=== PATIENT | male | born 1970 | race Caucasian/White ===

== ENCOUNTER 2016-08-15 11:25 | Emergency (ER) | payer MEDICAID, OTHER ==
--- NOTE | 2016-08-15 11:59 | C.PDOC ---
History Of Present Illness 46 yo male come in for evaluation of diffuse Right sided back pain gradually developed for past 3 weeks. Pain is localized, reproducible, aching, worse with movement. Pt admits, " work as house keeper, moves a lot". Otherwise, pt denies fever, chills, known trauma or injury, abd. pain, N/V, UTI sx, saddle anesthesia , urinary or fecal incontinence, denies weakness to B/L lEs. Ambulate to ED for evaluation, not in any apparent distress. Time Seen by Provider: 08/15/16 11:33 Chief Complaint (Nursing): Back Pain History Per: Patient History/Exam Limitations: no limitations Onset/Duration Of Symptoms: Days (2 weeks) Current Symptoms Are (Timing): Still Present Quality Of Discomfort: Aching Past Medical History Reviewed: Historical Data, Nursing Documentation, Vital Signs Vital Signs: Last Vital Signs Temp 97.6 F 08/15/16 11:32 Pulse 68 08/15/16 11:32 Resp 16 08/15/16 11:32 BP 139/83 08/15/16 11:32 Pulse Ox 98 08/15/16 12:22 - Medical History PMH: Asthma Family History: States: No Known Family Hx - Social History Hx Tobacco Use: No Hx Alcohol Use: No Hx Substance Use: No - Immunization History Hx Tetanus Toxoid Vaccination: No Hx Influenza Vaccination: No Hx Pneumococcal Vaccination: No Review Of Systems Except As Marked, All Systems Reviewed And Found Negative. Constitutional: Negative for: Fever, Chills Gastrointestinal: Negative for: Nausea, Vomiting, Abdominal Pain Genitourinary: Positive for: Other (No saddle anesthesia ). Negative for: Dysuria, Incontinence Musculoskeletal: Positive for: Back Pain (Right sided back pain) Physical Exam - Physical Exam Appears: Well, Non-toxic, No Acute Distress Skin: Normal Color, Warm, Dry, No Rash, No Ecchymosis Eye(s): bilateral: Normal Inspection Nose: Normal Throat: Normal, No Erythema Neck: Normal, Normal ROM, No Midline Cervical Tenderness, No Paracervical Tenderness, No Step Off Deformity, Supple Cardiovascular: Rhythm Regular Respiratory: Normal Breath Sounds Gastrointestinal/Abdominal: Normal Exam, Soft, No Tenderness, No Distention, No Guarding Back: Normal Inspection (mild discomfort to bending over L-spine due to pain.), No CVA Tenderness, No Vertebral Tenderness, Paraspinal Tenderness (diffuse Right lumbar), Straight Leg Raising (Right leg (+) at 50 degrees, Left leg (+) at 80 degrees.) Extremity: Normal ROM, No Pedal Edema, No Deformity, No Swelling Extremity: Bilateral: Atraumatic Neurological/Psych: Oriented x3, Normal Speech, Normal Motor, Normal Sensation, Normal Reflexes ED Course And Treatment O2 Sat by Pulse Oximetry: 98 Pulse Ox Interpretation: Normal - Other Rad X-Ray - LS Spine X-Ray: Interpreted by Me, Viewed By Me Interpretation: no acute fx or sublux Progress Note: On re-evaluation, pt is afebrile, hemodynamicaly stable. Tolerate Po well in ED. Ambulatory in ED, not in any apparent distress. PulseOx 97% RA. ENT: (-) acute findings. neck: (-) meningeal sign,. Abd: benign, (-) guarding, (-) rebound, (-) localized tenderness. Back: (-) CVA tenderness. Neuorlogicaly intact. XRay review and appears normal. Pt has clinical findings c/w back strain. Parent advised on course of ds. ref. to F/ u with PMD in 2-3 days for re-eval. return if any new changes. Medical Decision Making Medical Decision Making: PLAN: * X-Ray - LS Spine * Tramadol PO Disposition Counseled Patient/Family Regarding: Studies Performed, Diagnosis, Need For Followup, Rx Given - Disposition Referrals: [facility] [Outside] Disposition: HOME/ ROUTINE Disposition Time: 12:28 Condition: STABLE Additional Instructions: LIght duty to lower back, avoid heavy lifting, bending for 2-3 weeks Take medication as prescribed Follow up with PMD In 2-3 days for re-evaluation. Return to ED if any worsening or new changes. Prescriptions: Ibuprofen [Motrin] 600 mg PO Q6 #20 tab Methocarbamol [Robaxin] 500 mg PO TID #14 tab traMADol [Ultram] 50 mg PO TID #7 tab Instructions: Back Pain (ED) Forms: Work Excuse Print Language: UZBEK - Clinical Impression Clinical Impression: Low back strain - PA / OPTICIAN MANAGER / Resident Statement MD/DO has reviewed & agrees with the documentation as recorded. - Scribe Statement The provider has reviewed the documentation as recorded by the Scribe Ivett Renee All medical record entries made by the Scribe were at my direction and personally dictated by me. I have reviewed the chart and agree that the record accurately reflects my personal performance of the history, physical exam, medical decision making, and the department course for this patient. I have also personally directed, reviewed, and agree with the discharge instructions and disposition.
[2016-08-15 12:45] VITALS: BP 111/78; PULSE 73; RESP 18; TEMP 98.4; O2SAT 97
--- NOTE | 2016-08-15 13:55 | RAD ---
PROCEDURE: Radiographs of the Lumbar Spine. HISTORY: injury COMPARISON: No prior. FINDINGS: BONES: Normal alignment. No listhesis. No fracture. DISC SPACES: Unremarkable. OTHER FINDINGS: Constipation without fecal impaction or obstruction. IMPRESSION: No acute findings related to/accounting for the clinical presentation. Concordant results with the preliminary interpretation rendered by the emergency department physician procedure.
== END 2016-08-15 12:45 | disposition home or self-care (01) ==
LOC: C.ER 11:25
DX: S39.012A Strain of muscle, fascia and tendon of lower back, initial encounter (principal); X50.9XXA Other and unspecified overexertion or strenuous movements or postures, initial encounter; Y93.89 Activity, other specified; Y92.9 Unspecified place or not applicable

== ENCOUNTER 2017-02-27 04:29 | Emergency (ER) | payer SELFPAY ==
--- NOTE | 2017-02-27 05:18 | C.PDOC ---
History Of Present Illness 47 y/o male c/o acute onset of left foot pain that suddenly occurred when walking to the bathroom. Patient has no hx of gout. Denies trauma, weakness, or numbness. Time Seen by Provider: 02/27/17 04:49 Chief Complaint (Nursing): Lower Extremity Problem/Injury History Per: Patient History/Exam Limitations: no limitations Onset/Duration Of Symptoms: Hrs Current Symptoms Are (Timing): Still Present Severity: Mild Recent travel outside of the [place] States: No Additional History Per: Patient Past Medical History Reviewed: Historical Data, Nursing Documentation, Vital Signs Vital Signs: Last Vital Signs Temp 98 F 02/27/17 05:33 Pulse 67 02/27/17 05:33 Resp 16 02/27/17 05:33 BP 142/90 02/27/17 05:33 Pulse Ox 98 02/27/17 05:59 - Medical History PMH: Asthma (at childhood age) Family History: States: Unknown Family Hx - Social History Hx Tobacco Use: No Hx Alcohol Use: No Hx Substance Use: No - Immunization History Hx Tetanus Toxoid Vaccination: No Hx Influenza Vaccination: No Hx Pneumococcal Vaccination: No Review Of Systems Constitutional: Negative for: Other (Trauma) Musculoskeletal: Positive for: Foot Pain (Left) Neurological: Negative for: Weakness, Numbness Physical Exam - Physical Exam Appears: Non-toxic, No Acute Distress Skin: Warm, Dry Head: Atraumatic, Normacephalic Extremity: Normal ROM, No Tenderness, No Pedal Edema (no foot or leg edema), Capillary Refill, No Deformity, No Swelling (no swelling or pain podagra), Other (increase pain of the dorsum with dorsiflexion) Pulses: Left Dorsalis Pedis: Normal, Right Dorsalis Pedis: Normal Neurological/Psych: Oriented x3, Normal Motor, Normal Sensation Gait: Steady ED Course And Treatment O2 Sat by Pulse Oximetry: 98 (RA) Pulse Ox Interpretation: Normal Medical Decision Making Medical Decision Making: dorsum L foot pain, no fx/disloc/trauma. normal films no hx nor s/s of gout neg podagra improved with Motrin/ice. opt f/u. Disposition Doctor Will See Patient In The: Office Counseled Patient/Family Regarding: Studies Performed, Diagnosis - Disposition Referrals: [facility] [Outside] [facility] [Outside] Disposition: HOME/ ROUTINE Disposition Time: 05:18 Condition: GOOD Additional Instructions: sigue hielo encima del pie sigue ibuprofeno/Advil 400-600 mg cada 6 horas tuan necessario Sigue en [facility] [place]- tuan necessario. Instructions: Arthralgia (ED) Forms: [facility] (Sammarinese), Work Excuse Print Language: MALTESE - Clinical Impression Clinical Impression: Foot pain, left - Scribe Statement The provider has reviewed the documentation as recorded by the Scribe Fan wilder All medical record entries made by the Donnellibe were at my direction and personally dictated by me. I have reviewed the chart and agree that the record accurately reflects my personal performance of the history, physical exam, medical decision making, and the department course for this patient. I have also personally directed, reviewed, and agree with the discharge instructions and disposition.
[2017-02-27 05:32] VITALS: BP 142/90; PULSE 67; RESP 16; TEMP 98
[2017-02-27 05:57] VITALS: O2SAT 98
--- NOTE | 2017-02-27 08:54 | RAD ---
PROCEDURE: Left Foot Radiographs. HISTORY: dorsum of L foot, no trauma, no gout COMPARISON: None. FINDINGS: BONES: Normal. No fracture. JOINTS: Normal. SOFT TISSUES: Normal. OTHER FINDINGS: None. IMPRESSION: Normal left foot radiographs.
== END 2017-02-27 05:32 | disposition home or self-care (01) ==
LOC: C.ER 04:29
DX: M79.672 Pain in left foot (principal)

== ENCOUNTER 2017-06-09 07:50 | Emergency (ER) | payer OTHER ==
[2017-06-09 08:11] VITALS: RESP 18; O2SAT 98
[2017-06-09] MEDS ORDERED: Albuterol 0.083% Inhal Sol (2.5 mg/3 mL) UD INH STA (08:46)
--- NOTE | 2017-06-09 08:46 | C.PDOC ---
History Of Present Illness 47-year-old male, presents to the emergency department with complaints of non- productive cough and wheezing x4 days, that worsens at night. Patient states "I only get this way when I am sick." Patient ran out of Albuterol nebulizer at home. He denies smoking, fever or any other associated symptoms. No other complaints at this time. COUGH, WHEEZE X 4 DAYS. PS "I ONLY GET THIS WAY WHEN IM SICK". RAN OUT OF ALBUTEROL NEB @ HOME. NO SMOKE, FEVER. 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 EXAM NARD LUNGS CTA B/L OCC EXP WHEEZE NO RETRACTION SPEAKING FULL SENTENCES REMAINDER NEG Time Seen by Provider: 06/09/17 08:18 Chief Complaint (Nursing): Cough, Cold, Congestion History Per: Patient History/Exam Limitations: no limitations Onset/Duration Of Symptoms: Days Current Symptoms Are (Timing): Still Present Past Medical History Reviewed: Historical Data, Nursing Documentation, Vital Signs Vital Signs: Last Vital Signs Temp 98 F 06/09/17 08:06 Pulse 68 06/09/17 08:06 Resp 18 06/09/17 08:06 BP 151/91 H 06/09/17 08:06 Pulse Ox 98 06/09/17 09:11 - Medical History PMH: Asthma (at childhood age) Family History: States: No Known Family Hx - Social History Hx Tobacco Use: No Hx Alcohol Use: No Hx Substance Use: No - Immunization History Hx Tetanus Toxoid Vaccination: No Hx Influenza Vaccination: No Hx Pneumococcal Vaccination: No Review Of Systems Except As Marked, All Systems Reviewed And Found Negative. Constitutional: Negative for: Fever, Chills Cardiovascular: Negative for: Chest Pain, Palpitations Respiratory: Positive for: Cough, Wheezing. Negative for: Sputum Gastrointestinal: Negative for: Nausea, Vomiting Musculoskeletal: Negative for: Back Pain Neurological: Negative for: Headache Physical Exam - Physical Exam Appears: Non-toxic, No Acute Distress (NARD) Skin: Warm, Dry, No Rash Head: Atraumatic, Normacephalic Eye(s): bilateral: Normal Inspection, PERRL Nose: Normal Oral Mucosa: Moist Lips: Normal Appearing Neck: Normal ROM Chest: Symmetrical Cardiovascular: Rhythm Regular, No Murmur Respiratory: No Accessory Muscle Use, Wheezing, Other (CTA B/L OCC EXP WHEEZE NO RETRACTION SPEAKING FULL SENTENCES) Extremity: Normal ROM Neurological/Psych: Oriented x3, Normal Speech ED Course And Treatment ECG: Interpreted By Me ECG Rhythm: Sinus Rhythm ECG Interpretation: Normal Rate From EC O2 Sat by Pulse Oximetry: 98 Pulse Ox Interpretation: Normal - Radiology CXR: Interpreted by Me CXR Interpretation: Yes: No Acute Disease Medical Decision Making Medical Decision Making: Plan: * Chest X-Ray * Duoneb * Tessalon * Peak Flow * Reassess and Disposition Disposition Counseled Patient/Family Regarding: Studies Performed, Diagnosis, Need For Followup, Rx Given - Disposition Referrals: [facility] [Outside] [facility] [Outside] Disposition: HOME/ ROUTINE Disposition Time: 08:47 Condition: IMPROVED Prescriptions: Albuterol 0.083% [Albuterol Sulfate 3 Ml] 3 ml IH Q4 #30 neb Albuterol HFA [Ventolin HFA 90 mcg/actuation (8 g)] 1 puff IH Q4 #1 inhaler Benzonatate [Tessalon Perles] 200 mg PO TID PRN #15 sgl PRN Reason: Cough Instructions: Acute Bronchitis (ED) Forms: [employer] [facility] (Latvian), Work Excuse - Clinical Impression Clinical Impression: Bronchitis, Bronchospasm, Medicine refill - Scribe Statement The provider has reviewed the documentation as recorded by the Scribe (Anders Tian) All medical record entries made by the Scribe were at my direction and personally dictated by me. I have reviewed the chart and agree that the record accurately reflects my personal performance of the history, physical exam, medical decision making, and the department course for this patient. I have also personally directed, reviewed, and agree with the discharge instructions and disposition.
--- NOTE | 2017-06-09 08:52 | RAD ---
HISTORY: cough COMPARISON: Chest x-ray performed 09/09/14 TECHNIQUE: Chest PA and lateral FINDINGS: Examination limited by habitus. LUNGS: No focal consolidation. Please note that chest x-ray has limited sensitivity for the detection of pulmonary masses. PLEURA: No significant pleural effusion identified. No definite pneumothorax . CARDIOVASCULAR: The cardiomediastinal silhouette appears within normal limits of size. OSSEOUS STRUCTURES: No acute osseous abnormality identified. VISUALIZED UPPER ABDOMEN: Unremarkable. OTHER FINDINGS: None. IMPRESSION: No focal consolidation, significant pleural effusion, or definite pneumothorax identified.
[2017-06-09] MEDS ORDERED: Albuterol 0.083% Inhal Sol (2.5 mg/3 mL) UD ONE (09:00)
[2017-06-09 09:46] VITALS: BP 149/86; PULSE 65; TEMP 97.7
--- NOTE | 2017-06-10 23:44 | CARD ---
APPROVED REPORT EKG Measurement Heart [id number] <Conclusion> Normal sinus rhythm Normal ECG
== END 2017-06-09 09:35 | disposition home or self-care (01) ==
LOC: C.ER 07:50
DX: J40 Bronchitis, not specified as acute or chronic (principal); J98.01 Acute bronchospasm; Z76.0 Encounter for issue of repeat prescription

== ENCOUNTER 2017-10-24 07:30 | Emergency (ER) | payer SELFPAY ==
[2017-10-24 07:35] VITALS: TEMP 97.9
[2017-10-24] MEDS ORDERED: Lidocaine 5% Patch TD STA (07:56)
--- NOTE | 2017-10-24 07:56 | C.PDOC ---
History Of Present Illness <Carleen North - Last Filed: 10/24/17 09:53> <Johnie Gimenez - Last Filed: 10/24/17 20:44> 47 years old male presents to ED for complaints of lower back pain that began 2 days ago. Patient describes pain as dull and aching. Patient also reports pain worsens with movement and is non radiating. Denies injury, numbness, weakness, or any other physical complaints. Patient reports taking Tylenol with minimal relief. (Carleen North) History Per: Patient History/Exam Limitations: no limitations Onset/Duration Of Symptoms: Days (2) Current Symptoms Are (Timing): Still Present Quality Of Discomfort: Dull, Aching Previous Symptoms: None Associated Symptoms: None Exacerbating Factor(s): Movement Recent travel outside of the [place]: No <Carleen North - Last Filed: 10/24/17 09:53> <Johnie Gimenez - Last Filed: 10/24/17 20:44> Time Seen by Provider: 10/24/17 07:42 Chief Complaint (Nursing): Back Pain Past Medical History Reviewed: Historical Data, Nursing Documentation, Vital Signs - Medical History PMH: Asthma (at childhood age) Surgical History: No Surg Hx Family History: States: Unknown Family Hx - Social History Hx Tobacco Use: No Hx Alcohol Use: No Hx Substance Use: No - Immunization History Hx Tetanus Toxoid Vaccination: No Hx Influenza Vaccination: No Hx Pneumococcal Vaccination: No <Carleen North - Last Filed: 10/24/17 09:53> Vital Signs: Last Vital Signs Temp 97.9 F 10/24/17 07:34 Pulse 68 10/24/17 09:18 Resp 18 10/24/17 09:18 BP 131/76 10/24/17 09:18 Pulse Ox 99 10/24/17 09:55 Review Of Systems Constitutional: Negative for: Fever, Chills Gastrointestinal: Negative for: Nausea, Vomiting, Abdominal Pain, Diarrhea Genitourinary: Negative for: Dysuria, Scrotal Pain Musculoskeletal: Positive for: Back Pain (Lower back) Skin: Negative for: Rash Neurological: Negative for: Weakness, Numbness <Carleen North - Last Filed: 10/24/17 09:53> Physical Exam - Physical Exam Appears: Non-toxic, No Acute Distress Skin: Warm, Dry, No Rash, No Ecchymosis Head: Atraumatic, Normacephalic Eye(s): bilateral: Normal Inspection, EOMI Oral Mucosa: Moist Neck: Normal ROM, Supple Chest: Symmetrical, No Tenderness Cardiovascular: Rhythm Regular, No Murmur Respiratory: No Decreased Breath Sounds, No Rales, No Rhonchi, No Wheezing Gastrointestinal/Abdominal: Soft, No Tenderness, No Guarding Back: No Vertebral Tenderness, No Straight Leg Raising, Other (Paralumbar tenderness; No rash, swelling, or ecchymosis) Extremity: Bilateral: Atraumatic, Normal Color And Temperature, Normal ROM Neurological/Psych: Oriented x3, Normal Speech Gait: Steady <Carleen North Last Filed: 10/24/17 09:53> ED Course And Treatment O2 Sat by Pulse Oximetry: 99 (RA) Pulse Ox Interpretation: Normal <Carleen North Last Filed: 10/24/17 09:53> Medical Decision Making <Carleen North Last Filed: 10/24/17 09:53> <Johnie Gimenez Last Filed: 10/24/17 20:44> Medical Decision Making: Impression: Low back pain Based on history and exam no clinical indication for xray Plan: * Toradol * Flexeril * Lidoderm patch Progress: On reassessment, patient is resting comfortably, with improvement of back pain. Patient remains afebrile, with no bony tenderness, extremity numbness or weakness, or abdominal pain. Patient is ambulatory in the emergency department with no signs of discomfort. Patient was advised to follow up with physician/ clinic in 1-2 days. (Carleen North) Disposition Counseled Patient/Family Regarding: Diagnosis, Need For Followup, Rx Given - Disposition Disposition Time: 09:15 - POA Present On Arrival: None <Carleen North - Last Filed: 10/24/17 09:53> <Johnie Gimenez Last Filed: 10/24/17 20:44> - Disposition Referrals: [facility] [Outside] [facility] [Outside] Disposition: HOME/ ROUTINE Condition: IMPROVED Additional Instructions: Apply heat to area for 15-20 minutes at a time 2-3 times per day Take Motrin for pain every 6-8 hours as needed, with food to not upset stomach Take Flexeril for muscle pain and spasm every 6-8 hours as needed, caution can cause drowsiness Follow up with your primary medical doctor or clinic in 2-5 days for further evaluation Return to the emergency department at any time if symptoms persist or worsen. Prescriptions: Cyclobenzaprine [Cyclobenzaprine HCl] 10 mg PO TID #30 tab Ibuprofen [Motrin] 600 mg PO Q8 #30 tab Instructions: Low Back Pain (DC) Forms: [employer] (Citizen Of [place]), Work Excuse - Clinical Impression Clinical Impression: Low back pain - PA / COIL FINISHER / Resident Statement MD/ has reviewed & agrees with the documentation as recorded. - Scribe Statement The provider has reviewed the documentation as recorded by the Scribe <Carleen North - Last Filed: 10/24/17 09:53> - PA / COIL FINISHER / Resident Statement / has reviewed & agrees with the documentation as recorded. <Johnie Gimenez - Last Filed: 10/24/17 20:44> - Scribe Statement Alejandro Brady All medical record entries made by the Scribe were at my direction and personally dictated by me. I have reviewed the chart and agree that the record accurately reflects my personal performance of the history, physical exam, medical decision making, and the department course for this patient. I have also personally directed, reviewed, and agree with the discharge instructions and disposition. (Carleen North)
[2017-10-24] MEDS ORDERED: Lidocaine 5% Patch TD ONE (08:21)
[2017-10-24 09:19] VITALS: BP 131/76; PULSE 68; RESP 18
[2017-10-24 09:56] VITALS: O2SAT 99
== END 2017-10-24 09:19 | disposition home or self-care (01) ==
LOC: C.ER 07:30
DX: M54.5 Low back pain (principal)
CPT/HCPCS: 96372; 99283; J1885

== ENCOUNTER 2018-07-02 17:27 | Emergency (ER) | payer OTHER ==
[2018-07-02 17:34] VITALS: BMI 26.5
[2018-07-02] MEDS ORDERED: Albuterol-Ipratrop 3 mg / 0.5 (3 ml) UD ONE ×2 (17:45→18:06)
[2018-07-02] MEDS ORDERED: Albuterol-Ipratrop 3 mg / 0.5 (3 ml) UD INH STA (18:00)
--- NOTE | 2018-07-02 18:01 | C.PDOC ---
Time Seen by Provider: 07/02/18 17:54 Chief Complaint (Nursing): Cough, Cold, Congestion Past Medical History Vital Signs: Last Vital Signs Temp 99.7 F H 07/02/18 17:34 Pulse 97 H 07/02/18 17:34 Resp 24 07/02/18 17:34 BP 143/98 H 07/02/18 17:34 Pulse Ox 93 L 07/02/18 17:34 - Medical History PMH: Asthma (at childhood age) Family History: States: Unknown Family Hx - Social History Hx Tobacco Use: No Hx Alcohol Use: No Hx Substance Use: No - Immunization History Hx Tetanus Toxoid Vaccination: No Hx Influenza Vaccination: No Hx Pneumococcal Vaccination: No ED Course And Treatment ECG: Interpreted By Me ECG Rhythm: Sinus Rhythm ECG Interpretation: Normal Rate From EC O2 Sat by Pulse Oximetry: 93 Pulse Ox Interpretation: Abnormal Medical Decision Making Medical Decision Making: mild asthma exacerbation ran out of nebs meds @ home improved in ED Disposition Doctor Will See Patient In The: Office Counseled Patient/Family Regarding: Studies Performed, Diagnosis - Disposition Disposition: HOME/ ROUTINE Disposition Time: 18:01 Condition: GOOD Forms: [facility] (New Zealander) - Clinical Impression Clinical Impression: Asthma
[2018-07-02 18:32] VITALS: BP 135/97; PULSE 95; RESP 18; TEMP 99; O2SAT 95
--- NOTE | 2018-07-07 12:13 | CARD ---
APPROVED REPORT Date of service: 07/02/2018 EKG Measurement Heart [id number] <Conclusion> Normal sinus rhythm Normal ECG
== END 2018-07-02 18:31 | disposition home or self-care (01) ==
LOC: C.ER 17:27
DX: J45.909 Unspecified asthma, uncomplicated (principal)

== ENCOUNTER 2018-07-07 08:42 | Inpatient (IN) | payer SELFPAY ==
[2018-07-07 08:42] VITALS: BMI 26.5
[2018-07-07] MEDS ORDERED: Albuterol-Ipratrop 3 mg / 0.5 (3 ml) UD INH STA ×2 (08:55→10:31)
[2018-07-07] MEDS ORDERED: Sodium Chloride 0.9% 1,000 ML IV ONE (08:56)
[2018-07-07] MEDS ORDERED: Sodium Chloride 0.9% 1,000 ML ONE (09:08)
[2018-07-07] MEDS ORDERED: Albuterol-Ipratrop 3 mg / 0.5 (3 ml) UD ONE ×2 (09:12→10:43)
[2018-07-07 09:28] LABS: BASO # 0.1 K/uL (0.0-0.2); BASO % 0.6 % (0.0-2.0); EOS # 0.1 K/uL (0.0-0.7); EOS % 1.4 % (0.0-4.0); HEMOGLOBIN 13.7 g/dL (12.0-18.0); LYMPH # 0.9 K/uL (1.0-4.3); LYMPH % 9.7 % (20.0-40.0); MEAN CELL VOLUME 87.4 fL (80.0-94.0); MEAN CORPUSCULAR HEMOGLOBIN 28.5 pg (27.0-31.0); MEAN CORPUSCULAR HGB CONC 32.6 g/dL (33.0-37.0); MEAN PLATELET VOLUME 10.7 fL (7.2-11.7); MONO # 0.6 K/uL (0.0-0.8); MONO % 6.7 % (0.0-10.0); NEUT # 7.3 K/uL (1.8-7.0); NEUT % 81.6 % (50.0-75.0); PLATELET COUNT 186 K/uL (130-400); RBC 4.79 Mil/uL (4.40-5.90); RED CELL DISTRIBUTION WIDTH 12.8 % (11.5-14.5)
[2018-07-07 09:47] LABS: ALB/GLOB RATIO 1.2 (1.0-2.1); ALBUMIN 4.3 g/dL (3.5-5.0); ALT/SGPT 96 U/L (21-72); AST/SGOT 70 U/L (17-59); BLOOD UREA NITROGEN 13 mg/dL (9-20); CALCIUM 8.9 mg/dl (8.6-10.4); GFR NON-AFRICAN AMERICAN > 60
[2018-07-07 10:23] LABS: BANDS 4 % (0-2); LYMPHOCYTE 10 % (20-40); MONOCYTE 7 % (0-10); NEUTROPHIL 79 % (50-75); PLATELET ESTIMATE NORMAL (NORMAL); TOTAL CELLS COUNTED 100
--- NOTE | 2018-07-07 10:25 | RAD ---
Date of service: 07/07/2018 HISTORY: SOB COMPARISON: Comparison is made with 06/09/2017 TECHNIQUE: Chest PA and lateral FINDINGS: LUNGS: Small bibasilar opacities likely represent atelectasis are noted. Otherwise no significant interval change in the lungs. PLEURA: No significant pleural effusion identified. No pneumothorax apparent. CARDIOVASCULAR: No aortic atherosclerotic calcification present. Normal cardiac size. No pulmonary vascular congestion. OSSEOUS STRUCTURES: No significant abnormalities. VISUALIZED UPPER ABDOMEN: Normal. OTHER FINDINGS: None. IMPRESSION: Small bibasilar opacities. Otherwise no evidence of new infiltrate or consolidation in the lungs.
[2018-07-07] MEDS ORDERED: (Novolin R) Insulin Human Regular 100 units/ml vial IV ONE (10:30)
[2018-07-07] MEDS ORDERED: (Novolin R) Insulin Human Regular 100 units/ml vial ONE (10:44)
--- NOTE | 2018-07-07 10:57 | C.PDOC ---
History Of Present Illness 48 year old male with a history of asthma presents to the ED for evaluation of ongoing shortness of breath, productive cough with green phlegm, body aches, and tactile fever for 4 days. The patient reports prior ED visit 5 days ago where he was treated for exacerbated asthma. Systems persisted which prompted ED visit. Denies nausea, vomiting, diarrhea, and any other associated symptoms. Time Seen by Provider: 07/07/18 08:50 Chief Complaint (Nursing): Shortness Of Breath History Per: Patient History/Exam Limitations: no limitations Onset/Duration Of Symptoms: Days (x4) Current Symptoms Are (Timing): Still Present Recent travel outside of the [place]: No Past Medical History Reviewed: Historical Data, Nursing Documentation, Vital Signs Vital Signs: Last Vital Signs Temp 98.7 F 07/07/18 08:53 Pulse 118 H 07/07/18 10:38 Resp 101 H 07/07/18 10:38 BP 118/74 07/07/18 10:38 Pulse Ox 91 L 07/07/18 10:38 - Medical History PMH: Asthma (at childhood age) Family History: States: Unknown Family Hx - Social History Hx Tobacco Use: No Hx Alcohol Use: No Hx Substance Use: No - Immunization History Hx Tetanus Toxoid Vaccination: No Hx Influenza Vaccination: No Hx Pneumococcal Vaccination: No Review Of Systems Except As Marked, All Systems Reviewed And Found Negative. Constitutional: Positive for: Fever (tactile. ), Other (body aches. ) Respiratory: Positive for: Cough (productive. ), Shortness of Breath Physical Exam - Physical Exam Appears: Non-toxic, No Acute Distress Skin: Normal Color, Warm, Dry Head: Atraumatic, Normacephalic Eye(s): bilateral: Normal Inspection, PERRL, EOMI Nose: Normal Oral Mucosa: Moist Neck: Decreased ROM Chest: Symmetrical, No Deformity Cardiovascular: Rhythm Regular, No Murmur Respiratory: Wheezing (expiratory.) Gastrointestinal/Abdominal: Normal Exam, Soft, No Tenderness Extremity: Bilateral: Atraumatic, Normal Color And Temperature, Normal ROM Neurological/Psych: Oriented x3, Normal Speech ED Course And Treatment - Laboratory Results Result Diagrams: 07/07/18 09:18 07/07/18 09:18 Lab Results: Troponin I < 0.0120 ng/mL (0.00-0.120) 07/07/18 09:18 Total Bilirubin 0.7 mg/dL (0.2-1.3) 07/07/18 09:18 AST 70 U/L (17-59) H 07/07/18 09:18 ALT 96 U/L (21-72) H D 07/07/18 09:18 Alkaline Phosphatase 115 U/L (38-126) 07/07/18 09:18 Total Protein 7.7 g/dL (6.3-8.3) 07/07/18 09:18 Albumin 4.3 g/dL (3.5-5.0) 07/07/18 09:18 Globulin 3.4 gm/dL (2.2-3.9) 07/07/18 09:18 Albumin/Globulin Ratio 1.2 (1.0-2.1) 07/07/18 09:18 ECG: Interpreted By Me, Viewed By Me ECG Rhythm: Sinus Rhythm Interpretation Of ECG: No intervals. Normal axis. No ST or T Wave abnormalities. Rate From EC O2 Sat by Pulse Oximetry: 91 Pulse Ox Interpretation: Abnormal - Other Rad CXR X-Ray: Viewed By Me, Read By Radiologist Interpretation: FINDINGS: LUNGS: Small bibasilar opacities likely represent atelectasis are noted. Otherwise no significant interval change in the lungs. PLEURA: No significant pleural effusion identified. No pneumothorax apparent. CARDIOVASCULAR: No aortic atherosclerotic calcification present. Normal cardiac size. No pulmonary vascular congestion. OSSEOUS STRUCTURES: No significant abnormalities. VISUALIZED UPPER ABDOMEN: Normal. OTHER FINDINGS: None. IMPRESSION: Small bibasilar opacities. Otherwise no evidence of new infiltrate or consolidation in the lungs. Medical Decision Making Medical Decision Making: Initial plan: -EKG -Blood sent. -CXR -Duoneb -SOlu-Medrol -Toradol -Zithromax Progress/Update: 10:55am : Spoke with the hospitalist corporate communications manager, Dr. Khadar Evans who agreed to admit for pneumonia and hyperglycemia. Disposition Discussed With : Khadar Evans Doctor Will See Patient In The: Hospital Counseled Patient/Family Regarding: Studies Performed, Diagnosis - Disposition Disposition: HOSPITALIZED Disposition Time: 10:57 Condition: FAIR - Clinical Impression Clinical Impression: Pneumonia, Diabetes - Scribe Statement The provider has reviewed the documentation as recorded by the Scribe (Ana Moya) Provider Attestation: All medical record entries made by the Scribe were at my direction and personally dictated by me. I have reviewed the chart and agree that the record accurately reflects my personal performance of the history, physical exam, medical decision making, and the department course for this patient. I have also personally directed, reviewed, and agree with the discharge instructions and disposition.
--- NOTE | 2018-07-07 11:06 | CP.PCM.HP ---
<Charles Pan - Last Filed: 07/07/18 12:38> History of Present Illness - History of Present Illness History of Present Illness: PGY Medicine H and P for Dr. Evans CC: SOB, chest pain, fever, headache This is a 48 year old male with PMH of asthma who reports a 4 day history of worsening cough, chest pain and tactile fever. Pt describes chest pain as only occuring while coughing, nonradiating, sharp, midsternal muscular pain which is reproducible when he pushes on it. He describes the cough as starting as a dry cough, but now being productive of green sputum for the past 3 days. He endorses a tactile fever. He describes his headaches a pressure which is worse with coughing, and started after coughing. He denies body aches, palpitations, abdominal pain, n/v/d, recent illness, recent travel, sick contacts, history of blood clot in the past, car rides longer than 4 hours. He fell 2 days ago while working, attributes it to slipping. He has been ambulatory since, but has two abrasions to the anterior knees. Denies LOC, weakness, dizziness, head trauma, other injuries. He was seen in the ED on 06/30/18 for asthma exacerbation, treated with duonebs, prednisone 40 mg PO and discharged with albuterol prescription. He states he felt better when he left the ER on 06/30. PMD: none PMH: asthma (no hx of admission or intubations) PSH: denies Meds: albuterol inhaler Allx: NKDA FHx: DM in grandmother and uncle SHx: occasional etoh use, no history of withdrawals or seizures. Denies smoking history or drug use history Cancers: mother diagnosed with breast cancer at age 52, at 62. Has never had a colonoscopy. Denies history of previous admission. Present on Admission - Present on Admission Any Indicators Present on Admission: No Review of Systems - Review of Systems All systems: reviewed and no additional remarkable complaints except (as per HPI) Past Patient History - Infectious Disease Hx of Infectious Diseases: None - Past Social History Smoking Status: Never Smoked - PULMONARY Hx Asthma: Yes (at childhood age) - PSYCHIATRIC Hx Substance Use: No - SURGICAL HISTORY Hx Surgeries: No - ANESTHESIA Hx Anesthesia: No Meds Allergies/Adverse Reactions: Allergies Allergy/AdvReac Type Severity Reaction Status Date / Time No Known Allergies Allergy Verified 07/07/18 08:52 Physical Exam - Constitutional Appears: Non-toxic, No Acute Distress - Head Exam Head Exam: ATRAUMATIC, NORMAL INSPECTION - Eye Exam Eye Exam: EOMI, Normal appearance - ENT Exam ENT Exam: Mucous Membranes Moist - Neck Exam Neck exam: Positive for: Normal Inspection - Respiratory Exam Respiratory Exam: Chest Wall Tenderness (midsternal), Rhonchi (left side), Wheezes (scatterred, but good air movement). absent: Respiratory Distress, Stridor - Cardiovascular Exam Cardiovascular Exam: Tachycardia, +S1, +S2 - GI/Abdominal Exam GI & Abdominal Exam: Normal Bowel Sounds, Soft (central obesity). absent: Dis tended, Firm, Guarding, Rebound, Rigid, Tenderness - Extremities Exam Extremities exam: Positive for: normal capillary refill, normal inspection, pedal pulses present. Negative for: calf tenderness, pedal edema - Back Exam Back exam: NORMAL INSPECTION. absent: CVA tenderness (L), CVA tenderness (R), rash noted - Neurological Exam Neurological exam: Alert, Oriented x3 - Psychiatric Exam Psychiatric exam: Normal Affect, Normal Mood - Skin Skin Exam: Dry, Normal Color, Warm (warm to touch) Results - Vital Signs Recent Vital Signs: Last Vital Signs Temp 98.7 F 07/07/18 08:53 Pulse 118 H 07/07/18 10:38 Resp 101 H 07/07/18 10:38 BP 118/74 07/07/18 10:38 Pulse Ox 91 L 07/07/18 10:57 - Labs Result Diagrams: 07/07/18 09:18 07/07/18 09:18 Labs: Laboratory Results - last 24 hr 07/07/18 07/07/18 07/07/18 09:18 09:18 09:18 WBC 9.0 RBC 4.79 Hgb 13.7 Hct 41.9 MCV 87.4 MCH 28.5 MCHC 32.6 L RDW 12.8 Plt Count 186 MPV 10.7 Neut % (Auto) 81.6 H Lymph % (Auto) 9.7 L [place] % (Auto) 6.7 Eos % (Auto) 1.4 Baso % (Auto) 0.6 Neut # (Auto) 7.3 H Lymph # (Auto) 0.9 L [place] # (Auto) 0.6 Eos # (Auto) 0.1 Baso # (Auto) 0.1 Neutrophils % (Manual) 79 H Band Neutrophils % 4 H Lymphocytes % (Manual) 10 L Monocytes % (Manual) 7 Platelet Estimate Normal RBC Morphology Normal Sodium 132 Potassium 4.1 Chloride 94 L Carbon Dioxide 28 Anion Gap 13 BUN 13 Creatinine 0.7 L Est GFR ( Amer) > 60 Est GFR (Non-Af Amer) > 60 Random Glucose 351 H D Calcium 8.9 Total Bilirubin 0.7 AST 70 H ALT 96 H D Alkaline Phosphatase 115 Troponin I < 0.0120 Total Protein 7.7 Albumin 4.3 Globulin 3.4 Albumin/Globulin Ratio 1.2 Influenza Typ A,B (EIA) Negative for flu a/b Assessment & Plan - Assessment and Plan (Free Text) Assessment: This is a 48 year old male with PMH of asthma who reports a 4 day history of cough productive of green sputum, tactile fevers and musculoskeletal midsternal chest pain. Plan: Cough productive of green sputum with dyspnea CXR shows small bibasilar opacities Afebrile but tachycardic with bandemia of 4 Pt received rocephin 1g IVP in the ED, zithromx 500 mg IVP in the ED as well Start zithromax 500 mg IVP q24h, rocephin 1g IVPB BID F/u mycoplasma IgM, strep pneumo Ag, Legionella ag, Blood culturex2, sputum cx Asthma exacerbation Duonebs q6h cesario, q2h prn Solumedrol 40 mg IVP BID Received 125 mg IVP in the ED Costochondritis Chest pain reproducible on exam Alleviated with Toradol in the ED Troponin is negative Hyperglycemia Likely new onset diabetes as pt has family hx of diabetes and increased central adipose tissue Glucose is 371 on admission Received 4 units of novolin in the ED RISS low Accuchecks achs CCD F/u HgbA1c, lipid panel Will consider adding ACEi, ASA after results GI ppx not indicated at this time VTE ppx with SCDs, pt is ambulatory Case discussed with Dr. Cristina Pan PGY1 <Khadar Evans H - Last Filed: 07/07/18 13:43> Results - Vital Signs Recent Vital Signs: Last Vital Signs Temp 97.9 F 07/07/18 12:32 Pulse 103 H 07/07/18 12:32 Resp 20 07/07/18 12:32 BP 132/79 07/07/18 12:32 Pulse Ox 95 07/07/18 12:32 - Labs Result Diagrams: 07/07/18 09:18 07/07/18 09:18 Labs: Laboratory Results - last 24 hr 07/07/18 07/07/18 07/07/18 09:18 09:18 09:18 WBC 9.0 RBC 4.79 Hgb 13.7 Hct 41.9 MCV 87.4 MCH 28.5 MCHC 32.6 L RDW 12.8 Plt Count 186 MPV 10.7 Neut % (Auto) 81.6 H Lymph % (Auto) 9.7 L [place] % (Auto) 6.7 Eos % (Auto) 1.4 Baso % (Auto) 0.6 Neut # (Auto) 7.3 H Lymph # (Auto) 0.9 L [place] # (Auto) 0.6 Eos # (Auto) 0.1 Baso # (Auto) 0.1 Neutrophils % (Manual) 79 H Band Neutrophils % 4 H Lymphocytes % (Manual) 10 L Monocytes % (Manual) 7 Platelet Estimate Normal RBC Morphology Normal Sodium 132 Potassium 4.1 Chloride 94 L Carbon Dioxide 28 Anion Gap 13 BUN 13 Creatinine 0.7 L Est GFR ( Amer) > 60 Est GFR (Non-Af Amer) > 60 Random Glucose 351 H D Calcium 8.9 Total Bilirubin 0.7 AST 70 H ALT 96 H D Alkaline Phosphatase 115 Troponin I < 0.0120 Total Protein 7.7 Albumin 4.3 Globulin 3.4 Albumin/Globulin Ratio 1.2 Triglycerides 154 H Cholesterol 147 LDL Cholesterol Direct 81 HDL Cholesterol 40 Influenza Typ A,B (EIA) Negative for flu a/b Attending/Attestation - Attestation I have personally seen and examined this patient.: Yes I have fully participated in the care of the patient.: Yes I have reviewed all pertinent clinical information: Yes Notes (Text): 07/07/18 13:36 Medical attending: Patient was seen and examined by me. Agree with the above note by the resident The patient came back to the hospital due to the ongoing shortness of breath likley from asthma exacerbation the patient will be placed on IV solumedrol and nebulizers There is also some concern for possible pneumonia as well so will cover emperically with IV abx. He also has an elevated blood sugar as well and we discussed this with him Khadar Evans
[2018-07-07] MEDS ORDERED: Albuterol-Ipratrop 3 mg / 0.5 (3 ml) UD INH PRN (11:10)
[2018-07-07] MEDS ORDERED: Dextrose 50% SYRINGE Inj (50 ml) IV PRN (11:56)
[2018-07-07] MEDS ORDERED: Glucagon Recombinant 1 mg Inj IM PRN (11:56)
[2018-07-07 12:32] VITALS: RESP 20
[2018-07-07 13:00] LABS: HDL CHOLESTEROL 40 mg/dL (30-70)
[2018-07-07 13:11] LABS: LDL CHOLESTEROL 81 mg/dL (0-129)
[2018-07-07] MEDS: (Novolin R) Insulin Human Regular 100 units/ml vial SC SCH ×2 (16:30→22:15)
[2018-07-07] MEDS: MethylPREDNISolone 40 mg Vial IVP SCH (18:30)
[2018-07-07] MEDS: Albuterol-Ipratrop 3 mg / 0.5 (3 ml) UD INH SCH (19:30)
[2018-07-08] MEDS: (Novolin R) Insulin Human Regular 100 units/ml vial SC SCH ×2 (08:26→12:01)
[2018-07-08] MEDS: Albuterol-Ipratrop 3 mg / 0.5 (3 ml) UD INH SCH ×2 (08:48→13:47)
[2018-07-08 08:54] LABS: ALB/GLOB RATIO 1.2 (1.0-2.1); ALT/SGPT 90 U/L (21-72); AST/SGOT 44 U/L (17-59); BLOOD UREA NITROGEN 18 mg/dL (9-20); CALCIUM 8.9 mg/dl (8.6-10.4); GFR NON-AFRICAN AMERICAN > 60
[2018-07-08 09:12] LABS: BASO % 0.1 % (0.0-2.0); HEMOGLOBIN 12.8 g/dL (12.0-18.0); LYMPH # 0.7 K/uL (1.0-4.3); LYMPH % 7.5 % (20.0-40.0); MEAN CELL VOLUME 86.7 fL (80.0-94.0); MEAN CORPUSCULAR HEMOGLOBIN 28.8 pg (27.0-31.0); MEAN CORPUSCULAR HGB CONC 33.2 g/dL (33.0-37.0); MEAN PLATELET VOLUME 10.7 fL (7.2-11.7); MONO # 0.5 K/uL (0.0-0.8); MONO % 5.4 % (0.0-10.0); NEUT # 7.7 K/uL (1.8-7.0); PLATELET COUNT 209 K/uL (130-400); RBC 4.44 Mil/uL (4.40-5.90); RED CELL DISTRIBUTION WIDTH 13.4 % (11.5-14.5); WHITE BLOOD COUNT 8.9 K/uL (4.8-10.8)
[2018-07-08 09:39] LABS: BANDS 1 % (0-2); LYMPHOCYTE 6 % (20-40); MONOCYTE 5 % (0-10); NEUTROPHIL 88 % (50-75); TOTAL CELLS COUNTED 100
[2018-07-08 09:40] LABS: ANISOCYTOSIS SLIGHT; HYPOCHROMIC SLIGHT; LARGE PLATELETS PRESENT; PLATELET ESTIMATE NORMAL (NORMAL); POLYCHROMIC SLIGHT
[2018-07-08] MEDS: MethylPREDNISolone 40 mg Vial IVP SCH (09:48)
[2018-07-08 12:45] LABS: MYCOPLASMA PNEUMONIAE IGM NEGATIVE (NEGATIVE)
[2018-07-08] MEDS ORDERED: Azithromycin 500mg/250ML NS 500 MG/250 ML BAG IVPB SCH (13:00)
--- NOTE | 2018-07-08 13:02 | CP.PCM.DIS ---
<Charles Pan - Last Filed: 07/09/18 09:47> Provider - Provider Date of Admission: 07/07/18 10:56 Attending physician: Khadar Evans DO Time Spent in preparation of Discharge (in minutes): 35 Diagnosis - Discharge Diagnosis (1) New onset type 2 diabetes mellitus Status: Acute (2) Asthma attack Status: Acute (3) Pneumonia Status: Acute Hospital Course - Lab Results Lab Results: Micro Results 07/07/18 11:31 Blood Blood Culture - Preliminary NO GROWTH AFTER 24 HOURS 07/07/18 11:31 Blood Blood Culture - Preliminary NO GROWTH AFTER 24 HOURS 07/07/18 16:02 Sputum Gram Stain - Final Most Recent Lab Values WBC 8.9 K/uL (4.8-10.8) 07/08/18 08:05 RBC 4.44 Mil/uL (4.40-5.90) 07/08/18 08:05 Hgb 12.8 g/dL (12.0-18.0) 07/08/18 08:05 Hct 38.5 % (35.0-51.0) 07/08/18 08:05 MCV 86.7 fL (80.0-94.0) 07/08/18 08:05 MCH 28.8 pg (27.0-31.0) 07/08/18 08:05 MCHC 33.2 g/dL (33.0-37.0) 07/08/18 08:05 RDW 13.4 % (11.5-14.5) 07/08/18 08:05 Plt Count 209 K/uL (130-400) 07/08/18 08:05 MPV 10.7 fL (7.2-11.7) 07/08/18 08:05 Neut % (Auto) 87.0 % (50.0-75.0) H 07/08/18 08:05 Lymph % (Auto) 7.5 % (20.0-40.0) L 07/08/18 08:05 Wright % (Auto) 5.4 % (0.0-10.0) 07/08/18 08:05 Eos % (Auto) 0.0 % (0.0-4.0) 07/08/18 08:05 Baso % (Auto) 0.1 % (0.0-2.0) 07/08/18 08:05 Neut # (Auto) 7.7 K/uL (1.8-7.0) H 07/08/18 08:05 Lymph # (Auto) 0.7 K/uL (1.0-4.3) L 07/08/18 08:05 Wright # (Auto) 0.5 K/uL (0.0-0.8) 07/08/18 08:05 Eos # (Auto) 0.0 K/uL (0.0-0.7) 07/08/18 08:05 Baso # (Auto) 0.0 K/uL (0.0-0.2) 07/08/18 08:05 Neutrophils % (Manual) 88 % (50-75) H 07/08/18 08:05 Band Neutrophils % 1 % (0-2) 07/08/18 08:05 Lymphocytes % (Manual) 6 % (20-40) L 07/08/18 08:05 Monocytes % (Manual) 5 % (0-10) 07/08/18 08:05 Platelet Estimate Normal (NORMAL) 07/08/18 08:05 Large Platelets Present 07/08/18 08:05 RBC Morphology Normal 07/07/18 09:18 Polychromasia Slight 07/08/18 08:05 Hypochromasia (manual) Slight 07/08/18 08:05 Anisocytosis (manual) Slight 07/08/18 08:05 Sodium 133 mmol/L (132-148) 07/08/18 08:05 Potassium 4.0 mmol/L (3.6-5.2) 07/08/18 08:05 Chloride 99 mmol/L (98-107) 07/08/18 08:05 Carbon Dioxide 21 mmol/L (22-30) L 07/08/18 08:05 Anion Gap 16 (10-20) 07/08/18 08:05 BUN 18 mg/dL (9-20) 07/08/18 08:05 Creatinine 0.7 mg/dL (0.8-1.5) L 07/08/18 08:05 Est GFR ( Amer) > 60 07/08/18 08:05 Est GFR (Non-Af Amer) > 60 07/08/18 08:05 POC Glucose (mg/dL) 345 mg/dL (65-110) H 07/08/18 11:03 Random Glucose 300 mg/dL (75-110) H 07/08/18 08:05 Hemoglobin A1c 10.3 % (4.2-6.5) H 07/07/18 12:50 Calcium 8.9 mg/dl (8.6-10.4) 07/08/18 08:05 Phosphorus 3.6 mg/dL (2.5-4.5) 07/08/18 08:05 Magnesium 2.1 mg/dL (1.6-2.3) 07/08/18 08:05 Total Bilirubin 0.4 mg/dL (0.2-1.3) 07/08/18 08:05 AST 44 U/L (17-59) 07/08/18 08:05 ALT 90 U/L (21-72) H 07/08/18 08:05 Alkaline Phosphatase 119 U/L (38-126) 07/08/18 08:05 Troponin I < 0.0120 ng/mL (0.00-0.120) 07/07/18 09:18 Total Protein 7.5 g/dL (6.3-8.3) 07/08/18 08:05 Albumin 4.0 g/dL (3.5-5.0) 07/08/18 08:05 Globulin 3.4 gm/dL (2.2-3.9) 07/08/18 08:05 Albumin/Globulin Ratio 1.2 (1.0-2.1) 07/08/18 08:05 Triglycerides 154 mg/dL (0-149) H 07/07/18 09:18 Cholesterol 147 mg/dL (0-199) 07/07/18 09:18 LDL Cholesterol Direct 81 mg/dL (0-129) 07/07/18 09:18 HDL Cholesterol 40 mg/dL (30-70) 07/07/18 09:18 Influenza Typ A,B (EIA) Negative for flu a/b (NEGATIVE) 07/07/18 09:18 Ur L.pneumophila Ag Negative (NEGATIVE) 07/07/18 16:02 Mycoplasma pneumon IgM Negative (NEGATIVE) 07/07/18 13:50 - Hospital Course Hospital Course: On admission: This is a 48 year old male with PMH of asthma who reports a 4 day history of worsening cough, chest pain and tactile fever. Pt describes chest pain as only occuring while coughing, nonradiating, sharp, midsternal muscular pain which is reproducible when he pushes on it. He describes the cough as starting as a dry cough, but now being productive of green sputum for the past 3 days. He endorses a tactile fever. He describes his headaches a pressure which is worse with coughing, and started after coughing. He denies body aches, palpitations, abdominal pain, n/v/d, recent illness, recent travel, sick contacts, history of blood clot in the past, car rides longer than 4 hours. He fell 2 days ago while working, attributes it to slipping. He has been ambulatory since, but has two abrasions to the anterior knees. Denies LOC, weakness, dizziness, head trauma, other injuries. He was seen in the ED on 06/30/18 for asthma exacerbation, treated with duonebs, prednisone 40 mg PO and discharged with albuterol prescription. He states he felt better when he left the ER on 06/30. Hospital course: CXR showed small bibasilar opacities. Pt was started on antibiotics IV. Sugar noted to be elevated, requiring Insulin SC. Pt with family history of DM2, HgbA1c is 10.2. Pt discharged with Metformin and 7 day course of azithromycin. On discharge interview, pt is resting comfortably. States he feels better, cough is improved. He understands both of his diagnoses and will follow up with clinic downstairs. This is a summary of the hospital course. Please see EMR for full details. Discharge Exam - Head Exam Head Exam: ATRAUMATIC, NORMAL INSPECTION - Eye Exam Eye Exam: EOMI, Normal appearance - ENT Exam ENT Exam: Mucous Membranes Moist - Respiratory Exam Respiratory Exam: Clear to PA & Lateral, UNREMARKABLE - Cardiovascular Exam Cardiovascular Exam: REGULAR RHYTHM, +S1, +S2 - GI/Abdominal Exam GI & Abdominal Exam: Normal Bowel Sounds, Soft. absent: Tenderness - Extremities Exam Extremities exam: normal inspection, pedal pulses present - Neurological Exam Neurological exam: Alert - Psychiatric Exam Psychiatric exam: Normal Affect, Normal Mood - Skin Skin Exam: Dry, Normal Color, Warm Discharge Plan - Discharge Medications Prescriptions: Azithromycin 500 mg PO DAILY 7 Days #7 tablet metFORMIN [glucOPHAGE] 1,000 mg PO BID #30 tab predniSONE [predniSONE Tab] 20 mg PO DAILY #5 tab - Follow Up Plan Condition: FAIR Disposition: HOME/ ROUTINE Instructions: Diabetes Diet , Diabetes in Older Adults Additional Instructions: Pt is medically stable for discharge home as per Dr. Evans. Please continue taking your inhalers/nebulizers as needed. Pt should start taking Metformin 1000 mg once in the morning and once in the evening. Pt should take Prednisone 20 mg by mouth once a day for a total of 5 days. Pt should take Azithromycin 500 mg by mouth once a day for a total of 7 days. Pt should follow up with [facility] for management of new onset diabetes and other medical problems. You can call to make an appointment. If symptoms worsen, please go to the nearest Emergency Department for evaluation. Instructions explained to the pt, who understands and agrees with discharge plan. Referrals: [facility] [Outside] <Khadar Evans - Last Filed: 07/09/18 12:33> Provider - Provider Date of Admission: 07/07/18 10:56 Attending physician: Khadar Evans, Hospital Course - Lab Results Lab Results: Micro Results 07/07/18 11:31 Blood Blood Culture - Preliminary NO GROWTH AFTER 48 HOURS 07/07/18 11:31 Blood Blood Culture - Preliminary NO GROWTH AFTER 48 HOURS 07/07/18 16:02 Sputum Gram Stain - Final 07/07/18 16:02 Sputum Sputum Culture - Final NORMAL ORAL DAMIAN Most Recent Lab Values WBC 8.9 K/uL (4.8-10.8) 07/08/18 08:05 RBC 4.44 Mil/uL (4.40-5.90) 07/08/18 08:05 Hgb 12.8 g/dL (12.0-18.0) 07/08/18 08:05 Hct 38.5 % (35.0-51.0) 07/08/18 08:05 MCV 86.7 fL (80.0-94.0) 07/08/18 08:05 MCH 28.8 pg (27.0-31.0) 07/08/18 08:05 MCHC 33.2 g/dL (33.0-37.0) 07/08/18 08:05 RDW 13.4 % (11.5-14.5) 07/08/18 08:05 Plt Count 209 K/uL (130-400) 07/08/18 08:05 MPV 10.7 fL (7.2-11.7) 07/08/18 08:05 Neut % (Auto) 87.0 % (50.0-75.0) H 07/08/18 08:05 Lymph % (Auto) 7.5 % (20.0-40.0) L 07/08/18 08:05 Wright % (Auto) 5.4 % (0.0-10.0) 07/08/18 08:05 Eos % (Auto) 0.0 % (0.0-4.0) 07/08/18 08:05 Baso % (Auto) 0.1 % (0.0-2.0) 07/08/18 08:05 Neut # (Auto) 7.7 K/uL (1.8-7.0) H 07/08/18 08:05 Lymph # (Auto) 0.7 K/uL (1.0-4.3) L 07/08/18 08:05 Wright # (Auto) 0.5 K/uL (0.0-0.8) 07/08/18 08:05 Eos # (Auto) 0.0 K/uL (0.0-0.7) 07/08/18 08:05 Baso # (Auto) 0.0 K/uL (0.0-0.2) 07/08/18 08:05 Neutrophils % (Manual) 88 % (50-75) H 07/08/18 08:05 Band Neutrophils % 1 % (0-2) 07/08/18 08:05 Lymphocytes % (Manual) 6 % (20-40) L 07/08/18 08:05 Monocytes % (Manual) 5 % (0-10) 07/08/18 08:05 Platelet Estimate Normal (NORMAL) 07/08/18 08:05 Large Platelets Present 07/08/18 08:05 RBC Morphology Normal 07/07/18 09:18 Polychromasia Slight 07/08/18 08:05 Hypochromasia (manual) Slight 07/08/18 08:05 Anisocytosis (manual) Slight 07/08/18 08:05 Sodium 133 mmol/L (132-148) 07/08/18 08:05 Potassium 4.0 mmol/L (3.6-5.2) 07/08/18 08:05 Chloride 99 mmol/L (98-107) 07/08/18 08:05 Carbon Dioxide 21 mmol/L (22-30) L 07/08/18 08:05 Anion Gap 16 (10-20) 07/08/18 08:05 BUN 18 mg/dL (9-20) 07/08/18 08:05 Creatinine 0.7 mg/dL (0.8-1.5) L 07/08/18 08:05 Est GFR ( Amer) > 60 07/08/18 08:05 Est GFR (Non-Af Amer) > 60 07/08/18 08:05 POC Glucose (mg/dL) 345 mg/dL (65-110) H 07/08/18 11:03 Random Glucose 300 mg/dL (75-110) H 07/08/18 08:05 Hemoglobin A1c 10.3 % (4.2-6.5) H 07/07/18 12:50 Calcium 8.9 mg/dl (8.6-10.4) 07/08/18 08:05 Phosphorus 3.6 mg/dL (2.5-4.5) 07/08/18 08:05 Magnesium 2.1 mg/dL (1.6-2.3) 07/08/18 08:05 Total Bilirubin 0.4 mg/dL (0.2-1.3) 07/08/18 08:05 AST 44 U/L (17-59) 07/08/18 08:05 ALT 90 U/L (21-72) H 07/08/18 08:05 Alkaline Phosphatase 119 U/L (38-126) 07/08/18 08:05 Troponin I < 0.0120 ng/mL (0.00-0.120) 07/07/18 09:18 Total Protein 7.5 g/dL (6.3-8.3) 07/08/18 08:05 Albumin 4.0 g/dL (3.5-5.0) 07/08/18 08:05 Globulin 3.4 gm/dL (2.2-3.9) 07/08/18 08:05 Albumin/Globulin Ratio 1.2 (1.0-2.1) 07/08/18 08:05 Triglycerides 154 mg/dL (0-149) H 07/07/18 09:18 Cholesterol 147 mg/dL (0-199) 07/07/18 09:18 LDL Cholesterol Direct 81 mg/dL (0-129) 07/07/18 09:18 HDL Cholesterol 40 mg/dL (30-70) 07/07/18 09:18 Influenza Typ A,B (EIA) Negative for flu a/b (NEGATIVE) 07/07/18 09:18 H.influenzae Type B Ag TEST NOT PERFORMED 07/07/18 13:50 Ur L.pneumophila Ag Negative (NEGATIVE) 07/07/18 16:02 Mycoplasma pneumon IgM Negative (NEGATIVE) 07/07/18 13:50 N.meningitidis ACY/W135 TEST NOT PERFORMED 07/07/18 13:50 N.meningi B/E.coli K1 Ag TEST NOT PERFORMED 07/07/18 13:50 Group B Strep Antigen TEST NOT PERFORMED 07/07/18 13:50 S. pneumoniae Antigen Negative (NEGATIVE) 07/07/18 13:50 Attending/Attestation - Attestation I have personally seen and examined this patient.: Yes I have fully participated in the care of the patient.: Yes I have reviewed all pertinent clinical information, including history, physical exam and plan: Yes Notes (Text): 07/09/18 12:29 Medical attending: Patient was seen and examined by me. Agree with the above note by the resident The patient was not in any acute distress when I came and saw him. On exam he was able to walk around the hospital floor x 2 and he denied chest pain and denied shortness of breath, denied palpitation, and denied chest pain The patient will need to continue with PO abx as well as asthma medication and also predinsone and also metformin for RAHEL Evans
[2018-07-08 13:13] LABS: STREP PNEUMONIAE NEGATIVE (NEGATIVE)
[2018-07-08] MEDS ORDERED: Influenza Vaccine 60 mcg/0.5 mL SYR (4YR UP) IM ONE (15:00)
[2018-07-08] MEDS ORDERED: Pneumococcal 23-Valent Vaccine IM ONE (15:00)
[2018-07-08 16:52] VITALS: BP 117/65; PULSE 91; TEMP 98; O2SAT 96
== END 2018-07-08 17:35 | disposition home or self-care (01) | DRG 194 ==
LOC: C.ER 08:42 → C.3T 10:56
PROVIDERS: ADMIT Hospitalist; ATTEND Hospitalist
DX: J18.9 Pneumonia, unspecified organism (principal); J45.901 Unspecified asthma with (acute) exacerbation; E11.9 Type 2 diabetes mellitus without complications; Z79.4 Long term (current) use of insulin

== ENCOUNTER 2018-08-31 07:17 | Emergency (ER) | payer OTHER ==
[2018-08-31 07:31] VITALS: BMI 26.4
[2018-08-31 08:45] LABS: NRBC % 0.1 % (0.0-2.0)
[2018-08-31 08:50] LABS: BASO % 0.7 % (0.0-2.0); EOS # 0.2 K/uL (0.0-0.7); EOS % 3.1 % (0.0-4.0); HEMOGLOBIN 14.6 g/dL (12.0-18.0); LYMPH # 2.9 K/uL (1.0-4.3); LYMPH % 45.7 % (20.0-40.0); MEAN CELL VOLUME 87.2 fL (80.0-94.0); MEAN CORPUSCULAR HEMOGLOBIN 29.4 pg (27.0-31.0); MEAN CORPUSCULAR HGB CONC 33.7 g/dL (33.0-37.0); MEAN PLATELET VOLUME 11.2 fL (7.2-11.7); MONO # 0.6 K/uL (0.0-0.8); MONO % 9.1 % (0.0-10.0); NEUT # 2.6 K/uL (1.8-7.0); NEUT % 41.4 % (50.0-75.0); RBC 4.95 Mil/uL (4.40-5.90); WHITE BLOOD COUNT 6.3 K/uL (4.8-10.8)
--- NOTE | 2018-08-31 08:59 | CT ---
Date of service: 08/31/2018 PROCEDURE: CT HEAD WITHOUT CONTRAST. HISTORY: dizzy, double vision COMPARISON: None available. TECHNIQUE: Axial computed tomography images were obtained through the head/brain without intravenous contrast. Radiation dose: Total exam DLP = 945.0 mGy-cm. This CT exam was performed using one or more of the following dose reduction techniques: Automated exposure control, adjustment of the mA and/or kV according to patient size, and/or use of iterative reconstruction technique. FINDINGS: HEMORRHAGE: No intracranial hemorrhage. BRAIN: No mass effect or edema. No atrophy or chronic microvascular ischemic changes. Punctate right basal ganglia calcification. VENTRICLES: Unremarkable. No hydrocephalus. CALVARIUM: Unremarkable. PARANASAL SINUSES: Unremarkable as visualized. No significant inflammatory changes. MASTOID AIR CELLS: Unremarkable as visualized. No inflammatory changes. OTHER FINDINGS: None. IMPRESSION: No acute intracranial abnormality. If symptoms persists, consider correlation with MRI.
[2018-08-31 09:03] LABS: ALB/GLOB RATIO 1.4 (1.0-2.1); ALBUMIN 4.3 g/dL (3.5-5.0); ALT/SGPT 45 U/L (21-72); AST/SGOT 31 U/L (17-59); BLOOD UREA NITROGEN 16 mg/dL (9-20); CALCIUM 9.6 mg/dl (8.6-10.4); GFR NON-AFRICAN AMERICAN > 60
--- NOTE | 2018-08-31 09:24 | C.PDOC ---
Time Seen by Provider: 08/31/18 07:54 Chief Complaint (Nursing): Dizziness/Lightheaded Past Medical History Vital Signs: Last Vital Signs Temp 97.7 F 08/31/18 07:30 Pulse 56 L 08/31/18 08:59 Resp 16 08/31/18 08:59 BP 136/81 08/31/18 08:59 Pulse Ox 98 08/31/18 08:59 - Medical History PMH: Asthma (at childhood age) Family History: States: Unknown Family Hx - Social History Hx Tobacco Use: No Hx Alcohol Use: No Hx Substance Use: No - Immunization History Hx Tetanus Toxoid Vaccination: No Hx Influenza Vaccination: No Hx Pneumococcal Vaccination: No ED Course And Treatment - Laboratory Results Result Diagrams: 08/31/18 08:39 08/31/18 08:39 Lab Results: Total Bilirubin 0.7 mg/dL (0.2-1.3) 08/31/18 08:39 AST 31 U/L (17-59) 08/31/18 08:39 ALT 45 U/L (21-72) 08/31/18 08:39 Alkaline Phosphatase 76 U/L (38-126) 08/31/18 08:39 Total Protein 7.5 g/dL (6.3-8.3) 08/31/18 08:39 Albumin 4.3 g/dL (3.5-5.0) 08/31/18 08:39 Globulin 3.1 gm/dL (2.2-3.9) 08/31/18 08:39 Albumin/Globulin Ratio 1.4 (1.0-2.1) 08/31/18 08:39 O2 Sat by Pulse Oximetry: 98 Disposition - Disposition
[2018-08-31 09:31] LABS: URINE BILIRUBIN NEGATIVE (NEGATIVE); URINE BLOOD NEGATIVE (NEGATIVE); URINE CLARITY Clear (Clear); URINE COLOR Straw (YELLOW); URINE GLUCOSE (UA) NORMAL (Normal); URINE LEUKOCYTE ESTERASE NEG Leu/uL (Negative); URINE PROTEIN NEGATIVE (NEGATIVE); URINE UROBILINOGEN NORMAL mg/dL (0.2-1.0)
--- NOTE | 2018-08-31 10:56 | C.PDOC ---
History Of Present Illness 48 y/o male pt with recent dx of DM c/o several episodes of dizziness x5 days. Pt reports dizziness came on suddenly at work. Pt reports feeling spinning and tilting to the right. Associated sx includes double vision: 1 episode x5 days ago and 2 yesterday. Pt notes dizziness resolves when pt sits down. Pt denies fever, neck stiffness and chest pain. denies head trauma, no vomiting. pt has no dizziness now. Time Seen by Provider: 08/31/18 07:54 Chief Complaint (Nursing): Dizziness/Lightheaded History Per: Patient History/Exam Limitations: no limitations Onset/Duration Of Symptoms: Days (x5) Current Symptoms Are (Timing): Still Present Activity At Onset Of Symptoms: Standing Past Medical History Reviewed: Historical Data, Nursing Documentation, Vital Signs Vital Signs: Last Vital Signs Temp 97.5 F L 08/31/18 10:16 Pulse 60 08/31/18 10:16 Resp 18 08/31/18 10:16 BP 139/86 08/31/18 10:16 Pulse Ox 99 08/31/18 10:16 - Medical History PMH: Asthma (at childhood age) Family History: States: Unknown Family Hx - Social History Hx Tobacco Use: No Hx Alcohol Use: No Hx Substance Use: No - Immunization History Hx Tetanus Toxoid Vaccination: No Hx Influenza Vaccination: No Hx Pneumococcal Vaccination: No Review Of Systems Constitutional: Negative for: Fever Cardiovascular: Negative for: Chest Pain Musculoskeletal: Negative for: Neck Pain, Other (neck stiffness) Neurological: Positive for: Dizziness Physical Exam - Physical Exam Appears: Non-toxic, No Acute Distress Skin: Warm, Dry, No Rash Head: Atraumatic, Normacephalic Eye(s): bilateral: Normal Inspection, PERRL, EOMI, Other (no nystagmus ) Ear(s): Bilateral: Normal Oral Mucosa: Moist Neck: Supple Chest: No Tenderness Cardiovascular: Rhythm Regular, No Murmur Respiratory: No Rales, No Rhonchi, No Wheezing, Other (CTA b/l) Gastrointestinal/Abdominal: Soft, No Tenderness, No Distention Extremity: Normal ROM (x4), No Tenderness, No Pedal Edema, No Calf Tenderness, Capillary Refill (<2 sec ), No Deformity, No Swelling Extremity: Bilateral: Normal Color And Temperature Pulses: Left Radial: Normal, Right Radial: Normal Neurological/Psych: Oriented x3, Normal Speech, Normal Cognition, Normal Cranial Nerves, Normal Motor, Normal Sensation, Other (no pronator drift, finger-nose normal. gait steady. SNEHAL intact. ) Gait: Steady ED Course And Treatment - Laboratory Results Result Diagrams: 08/31/18 08:39 08/31/18 08:39 Lab Results: Total Bilirubin 0.7 mg/dL (0.2-1.3) 08/31/18 08:39 AST 31 U/L (17-59) 08/31/18 08:39 ALT 45 U/L (21-72) 08/31/18 08:39 Alkaline Phosphatase 76 U/L (38-126) 08/31/18 08:39 Total Protein 7.5 g/dL (6.3-8.3) 08/31/18 08:39 Albumin 4.3 g/dL (3.5-5.0) 08/31/18 08:39 Globulin 3.1 gm/dL (2.2-3.9) 08/31/18 08:39 Albumin/Globulin Ratio 1.4 (1.0-2.1) 08/31/18 08:39 Urine Color Straw (YELLOW) 08/31/18 09:26 Urine Clarity Clear (Clear) 08/31/18 09:26 Urine pH 6.0 (5.0-8.0) 08/31/18 09:26 Ur Specific [place] 1.008 (1.003-1.030) 08/31/18 09:26 Urine Protein Negative mg/dL (NEGATIVE) 08/31/18 09:26 Urine Glucose (UA) Normal mg/dL (Normal) 08/31/18 09:26 Urine Ketones Negative mg/dL (NEGATIVE) 08/31/18 09:26 Urine Blood Negative (NEGATIVE) 08/31/18 09:26 Urine Nitrate Negative (NEGATIVE) 08/31/18 09:26 Urine Bilirubin Negative (NEGATIVE) 08/31/18 09:26 Urine Urobilinogen Normal mg/dL (0.2-1.0) 08/31/18 09:26 Ur Leukocyte Esterase Neg Donna/uL (Negative) 08/31/18 09:26 Urine WBC (Auto) 1 /hpf (0-5) 08/31/18 09:26 Urine RBC (Auto) < 1 /hpf (0-3) 08/31/18 09:26 ECG: Interpreted By Me, Viewed By Me ECG Rhythm: Sinus Bradycardia ECG Interpretation: Normal Rate From EC O2 Sat by Pulse Oximetry: 99 (RA) Pulse Ox Interpretation: Normal - CT Scan/US head Other Rad Studies (CT/US): Read By Radiologist, Radiology Report Reviewed CT/US Interpretation: IMPRESSION: No acute intracranial abnormality. If symptoms persists, consider correlation with MRI. Medical Decision Making Medical Decision Making: Plans: -- chem labs -- blood work -- EKG -- CT head -- Antivert 1214 pt with few episodes of vertigo like sensations. labs and head ct normal. pt with mild orthostasis. fluids ordered and one dose of meclizine given in ed. pt has no dizziness here in er. will d/c home with pmd f/u Disposition Counseled Patient/Family Regarding: Studies Performed, Diagnosis, Need For Followup, Rx Given - Disposition Referrals: [facility] at [facility] [Outside] Disposition: HOME/ ROUTINE Disposition Time: 12:17 Condition: GOOD Additional Instructions: Drink increased fluids. Follow up in medical cliniic as soon as possible. Take meclizine if you have dizzy episode- this medicine may make you sleepy. Return to ER for any worse symptoms. Prescriptions: Meclizine [Meclizine*] 12.5 mg PO Q6 #30 tab Instructions: Vertigo (a Type of Dizziness) Forms: [facility] (Nam[place]ian), General Discharge Instructions - Clinical Impression Clinical Impression: Dizziness - PA / POLICYHOLDER INFORMATION CLERK / Resident Statement / has reviewed & agrees with the documentation as recorded. - Scribe Statement The provider has reviewed the documentation as recorded by the Essence Sparks Do All medical record entries made by the Scribe were at my direction and personally dictated by me. I have reviewed the chart and agree that the record accurately reflects my personal performance of the history, physical exam, medical decision making, and the department course for this patient. I have also personally directed, reviewed, and agree with the discharge instructions and disposition.
[2018-08-31] MEDS ORDERED: Sodium Chloride 0.9% 1,000 ML ONE (11:51)
[2018-08-31] MEDS ORDERED: Sodium Chloride 0.9% 1,000 ML IV ONE (11:51)
[2018-08-31] MEDS ORDERED: Sodium Chloride 0.9% 1,000 ML IV SCH (12:00)
[2018-08-31 13:00] VITALS: BP 113/78; PULSE 66; RESP 20; TEMP 98.1
[2018-09-02 05:00] VITALS: O2SAT 99
--- NOTE | 2018-09-04 15:48 | CARD ---
APPROVED REPORT Date of service: 08/31/2018 EKG Measurement Heart [id number] CT 160P46 [id number] <Conclusion> Sinus bradycardia Otherwise normal ECG
== END 2018-08-31 13:06 | disposition home or self-care (01) ==
LOC: C.ER 07:17
DX: R42 Dizziness and giddiness (principal)
CPT/HCPCS: 70450; 80053; 81001; 82948; 85025; 96360; 99285; J7030